=== PATIENT | female | born 1955 | race Caucasian/White ===

== ENCOUNTER 2017-09-10 11:50 | Emergency (ER) | payer OTHER ==
[2017-09-10 12:01] VITALS: BP 109/66
--- NOTE | 2017-09-10 12:41 | EDPHY ---
H & P Stated Complaint: Racoon bite last evening on R hand Time Seen by Provider: 09/10/17 12:41 - Personal History Current Tetanus Diphtheria and Acellular Pertussis (TDAP): Unsure - Medical/Surgical History Other PMH: thyroid - Social History Smoking Status: Never smoked Constitutional: Initial Vital Signs Temperature (C) 36.6 C 09/10/17 11:56 Heart Rate 56 L 09/10/17 11:56 Respiratory Rate 16 09/10/17 11:56 Blood Pressure 109/66 09/10/17 11:56 O2 Sat (%) 96 09/10/17 11:56 O2 Delivery Mode Room Air Allergies/Adverse Reactions: No Known Allergies Allergy (Unverified 09/10/17 11:56) Home Medications: Medication Instructions Recorded Levothyroxine [Synthroid 100 mcg 100 mcg PO DAILY06 09/10/17 (*)] Medical Decision Making ED Course/Re-evaluation: CHIEF COMPLAINT: Right hand raccoon bite HISTORY OF PRESENT ILLNESS: The patient is a 62 y/o female complaining of a raccoon bite to her right hand that occurred last night while trying to get raccoons out of her yard. She did receive a rabies vaccine and rabies immunoglobin around 8 years ago for a previous bite. Currently she is having minor pain in her right hand. Denies being up-to-date on Tetanus. Denies numbness, paresthesias, headache, chest pain , shortness of breath, abdominal pain, urinary or bowel complaints, fever. REVIEW OF SYSTEMS: A 10 point review of systems was performed and is negative with the exception of the elements mentioned in the history of present illness. PHYSICAL EXAM: HR, BP, O2 Sat, RR. Temp noted General Appearance: Alert, well hydrated, appropriate, and non-toxic appearing. Head: Atraumatic without scalp tenderness or obvious injury Eyes: Pupils equal, round, reactive to light and accommodation, EOMI, no trauma , no injection. Ears: Clear bilaterally, no perforation, normal landmarks Nose: Atraumatic, no rhinorrhea, clear. Throat: There is no erythema or exudates, no lesions, normal tonsils, mucus membranes moist. Neck: Supple, nontender, no lymphadenopathy. Respiratory: No retractions, no distress, no wheezes, and no accessory muscle use. Lungs are clear to auscultation bilaterally. Cardiovascular: Regular rate and rhythm, no murmurs, rubs, or gallops. Bilateral carotid, radial, dorsalis pedis, and posterior tibial pulses intact. Good capillary refill all extremities. Gastrointestinal: Abdomen is soft, nontender, non-distended, no masses, no rebound, no guarding, no peritoneal signs. Musculoskeletal: Right Hand: Puncture site on dorsal aspect between 2nd and 3rd digit, puncture site at the volar base of the 2nd digit. Normal active ROM of all extremities. Neurological: Alert, appropriate, and interactive. The patient has normal DTRs and non-focal cranial nerves, motor, sensory, and cerebellar exam. Skin: No rashes, good turgor, no nodules on palpation. Past medical history: Rabies vaccination Past surgical history: Denies Family history: Denies Social history: Lives in [place], employed DIAGNOSTICS/PROCEDURES/CRITICAL CARE TIME: Not indicated. DIFFERENTIAL DIAGNOSIS: The differential diagnosis for the patient's hand injury included but was not limited to animal bite, fracture, ligamentous injury, contusion, muscular strain. MEDICAL DECISION MAKING: The patient is a 62 y/o female presenting with a raccoon bite to her right hand that occurred last night. She has received rabies and immunoglobin around 8 years ago. On exam she has a puncture site on the dorsal aspect between 2nd and 3rd digit and a puncture site at the volar base of the 2nd digit. Imaging and laboratory studies not indicated at this time. 1312: Consulted with Dr. Cordova, infectious disease, regarding this patient. The patient only needs the rabies immunization booster. She does not need immunoglobin. First rabies vaccine and tetanus booster administered. 1330: Reassessed patient and discussed follow up vaccination on 09/13/17, 3 days from now. I have advised her to have this done at [facility], [facility], or at her PCP. Return precautions provided. - Data Points Medications Given: Discontinued Medications Diphtheria/Tetanus/Acell Pertussis (Boostrix) 0.5 ml IM .ONCE ONE Stop: 09/10/17 13:06 Last Admin: 09/10/17 13:20 Dose: 0.5 ml Departure - Departure Disposition: Home, Routine, Self-Care Clinical Impression: Rabies exposure Raccoon bite Qualifiers: Encounter type: initial encounter Qualified Code(s): W55.51XA - Bitten by raccoon, initial encounter Condition: Good Instructions: Animal Bite (ED), Rabies (ED), Rabies Vaccine (ED) Additional Instructions: 1. Follow up with your primary care provider, [facility], or the [facility] for your subsequent rabies vaccinations. You will need one more rabies vaccination (Rabovert) on day 3, 09/13/17. 2. Return to the Emergency Department for fever, redness, discharge from wound, increasing pain or other worsening of condition. Referrals: Antoinette Rich MD [Primary Care Provider] - As per Instructions Wesley Cordova MD [Medical Doctor] - As per Instructions Report Scribed for: Pablo Lin Report Scribed by: Darlyn Ferguson Date of Report: 09/10/17 Time of Report: 12:51
[2017-09-10] MEDS ORDERED: TDAP ADULT 0.5 ML INJ (BOOSTRIX) IM ONE (13:05)
[2017-09-10] MEDS ORDERED: RABIES VACC, HUMAN DIPLOID/PF 2.5 UNIT VIAL (RABAVERT) IM ONE (13:26)
== END 2017-09-10 14:22 | disposition home or self-care (01) ==
DX: S61.451A Open bite of right hand, initial encounter (principal); Z20.3 Contact with and (suspected) exposure to rabies; Z23 Encounter for immunization; W55.51XA Bitten by raccoon, initial encounter; Y92.007 Garden or yard of unspecified non-institutional (private) residence as the place of occurrence of the external cause

== ENCOUNTER → 2018-06-19 | Outpatient (CLI) | payer OTHER | LOC: FIMAGING 07:57 | PROVIDERS: ATTEND Internal Medicine | DX: Z12.31 Encounter for screening mammogram for malignant neoplasm of breast (principal) ==